=== PATIENT | female | born 1955 | race Hispanic/Latino ===

== ENCOUNTER → 2020-06-20 | Outpatient (CLI) | payer MEDICARE ==
[~2020-06-20] MED LIST: AMARYL4 MG PO; CORDARONE200 MG PO; ECOTRIN325 MG PO; METFORMIN HCL500 MG PO; MULTIVITAMINS1 EAC7 PO; OSCAL PO; SIMVASTATIN40 MG PO; TENORMIN50 MG PO; TOPROL XL25 MG PO; TRIAMTERENE-HCTZ1 EA PO; ZESTRIL10 MG PO
--- NOTE | 2020-06-20 09:31 | Diagnostic Imaging Report ---
EXAMINATION: CHEST 2 VIEWS INDICATION:EDEMA / ANGINA COMPARISON: None FINDINGS: TUBES and LINES: None. LUNGS: Lungs are well inflated. Small pleural effusion with left basilar opacity, likely atelectasis. No evidence of pulmonary edema. Central vascular congestion. Bilateral calcified granulomas. PLEURA: No pleural effusion or pneumothorax. HEART AND MEDIASTINUM: The cardiomediastinal silhouette is mildly enlarged. There are atherosclerotic calcifications within the aorta. BONES AND SOFT TISSUES: No acute osseous abnormality. Diffuse osteopenia. UPPER ABDOMEN: No free air under the diaphragm. IMPRESSION: Mild enlargement of the cardiomediastinal silhouette. Central vessel congestion without pulmonary edema. Small left pleural effusion with left basilar opacity, likely atelectasis. Signed by: Dr. Arlette Nieto MD on 06/20/2020 9:28 AM
== END ==
LOC: RAD 08:54
PROVIDERS: ATTEND Family Medicine
DX: I20.9 Angina pectoris, unspecified (principal); R60.9 Edema, unspecified
CPT/HCPCS: 71046